=== PATIENT | female | born 1965 | race Caucasian/White ===

== ENCOUNTER → 2016-09-15 | Outpatient (CLI) | payer BC | LOC: FIMAGING 11:33 | DX: Z12.31 Encounter for screening mammogram for malignant neoplasm of breast (principal) | CPT/HCPCS: G0202 ==

== ENCOUNTER 2017-05-24 11:01 | Emergency (ER) | payer BC ==
[2017-05-24] MEDS ORDERED: NS 500 ML IV ONE (11:14)
[2017-05-24] MEDS ORDERED: LORazepam 2 MG/ML INJ IVP ONE (11:25)
--- NOTE | 2017-05-24 11:25 | CPEKG ---
Heart Rate: 108 RR Interval: 556 P-R Interval: 180 QRSD Interval: 86 QT Interval: 344 QTC Interval: 461 P Bruin: 72 QRS Bruin: 33 T Wave Bruin: 58 EKG Severity - BORDERLINE ECG - EKG Impression: SINUS TACHYCARDIA EKG Impression: PROBABLE LEFT ATRIAL ABNORMALITY Electronically Signed By: Jairo Key 24-May-2017 13:13:33
--- NOTE | 2017-05-24 11:25 | EDPHY ---
H & P Stated Complaint: ROMELIA arm numbness, Time Seen by Provider: 05/24/17 11:12 HPI/ROS: CHIEF COMPLAINT: "Feeling weird " x 3-5 days HISTORY OF PRESENT ILLNESS: 51-year-old female generally healthy arrives via private vehicle stating that for the past 3-5 days she will feel intermittent episodes of bilateral upper extremity paresthesia, left shoulder pain, anxiety, subjective sensation of hypertension. No prior history of known hypertension but at was at her ear nose and throat doctor recently and was told she had a systolic blood pressure 139 and was told to have this recheck. No antihypertensive use history. She states that when she develops these episodes she feels better if she goes outside, exercises, walks the dog. Denies: Chest pain with exertion, dyspnea with exertion, illicit drug use, cigarette use, vasculopathy or coagulopathic history. PRIMARY CARE PROVIDER:Korin Cheatham PA-C REVIEW OF SYSTEMS: A ten point review of systems was performed and is negative with the exception of the items mentioned in the HPI PAST MEDICAL & SURGICAL HISTORY: No pertinent medical or surgical history SOCIAL HISTORY:Nonsmoker. No drug use. FAMILY HISTORY: Father of OR at age 64. Mother history of atrial fibrillation diagnosed in her 80s. No family history of premature coronary artery disease or vasculopathy. PHYSICAL EXAM (Prior to examination, patient consented to physical exam, hands were washed and my usual and customary physical exam procedures followed) 1) GENERAL: Well-developed, well-nourished, alert and oriented. Appears anxious 2) HEAD: Normocephalic, atraumatic 3) HEENT: Pupils equal, round, reactive to light bilaterally. Sclera anicteric. Nasopharynx, oropharynx, clear, no lesions. Ears bilaterally with normal tympanic membranes. 4) NECK: Full range of motion, no meningeal signs. No bruit 5) LUNGS: Clear auscultation bilaterally, no wheezes, no rhonchi, no retractions. 6) HEART: Regular rate and rhythm, no murmur, no heave, no gallop. 7) ABDOMEN: No guarding, no rebound, no focal tenderness, negative McBurney's, negative Winston's, negative Rovsing's, negative peritoneal sign, 8) MUSCULOSKELETAL: Moving all extremities, no focal areas of tenderness, no obvious trauma. No peripheral edema or discoloration. No peripheral edema 9) BACK: No CVA tenderness, no midline vertebral tenderness, no fluctuance, no step-off, no obvious trauma, no visual or palpable abnormality. 10) SKIN: No rash, no petechiae. 11) Psychiatric: Patient is oriented X 3, there is no agitation. She appears anxious. DIFFERENTIAL DIAGNOSIS: In no particular order including but limited to OR, PE , psychiatric etiology, endocrinologic etiology - Personal History LMP (Females 10-55): Post Menopausal Current Tetanus/Diphtheria Vaccine: Yes Current Tetanus Diphtheria and Acellular Pertussis (TDAP): Yes - Medical/Surgical History Hx Asthma: No Hx Chronic Respiratory Disease: No Hx Diabetes: No Hx Cardiac Disease: No Hx Renal Disease: No Hx Cirrhosis: No Hx Alcoholism: No Hx HIV/AIDS: No Hx Splenectomy or Spleen Trauma: No Other PMH: vertigo-2010, L ACL repair, - Social History Smoking Status: Never smoked Constitutional: Initial Vital Signs Temperature (C) 36.6 C 05/24/17 11:07 Heart Rate 125 H 05/24/17 11:07 Respiratory Rate 20 05/24/17 11:07 Blood Pressure 179/94 H 05/24/17 11:07 O2 Sat (%) 98 05/24/17 11:07 O2 Delivery Mode Room Air Allergies/Adverse Reactions: No Known Allergies Allergy (Unverified 05/24/17 11:06) Home Medications: Medication Instructions Recorded Flaxseed Oil 05/24/17 Ibuprofen 05/24/17 LORazepam [Ativan 1 mg (RX)] 1 mg PO Q6 PRN #7 tab 05/24/17 Medical Decision Making - Diagnostics Imaging Results: Imaging Impressions Chest X-Ray 05/24/17 11:14 Impression: Normal. No pneumonia. ED Course/Re-evaluation: 11:27 a.m.: Will obtain laboratory studies including D-dimer, chest x-ray, troponin, TSH. Will administer IV saline, Ativan as she appears acutely anxious. At this time, she describes symptoms that resolved with physical activity or with walking her dog, I think that acute cardiac etiology is less than likely in this patient however will proceed with diagnostic studies and re- evaluate. 12:45 p.m.: Re-evaluation, discussed with patient her diagnostic studies including negative chest x-ray, D-dimer, troponin. Patient was given dose of IV Ativan in the emergency department. Heart rate in the 90s at this time, she is feeling improvement. I think that cardiac etiology less than likely the patient as she describes symptoms which improved with exertional activity, also noted to have negative troponin, sinus tachycardia, normal chest x-ray. I think that negative D-dimer adequately excludes pulmonary embolus in this patient with medium index of suspicion for pulmonary embolus. TSH is normal as patient. She has no co appointment with primary care provider this week (today is Thursday). I recommend she keep this appointment. Also recommend patient keep blood pressure diary. Doubt hypertensive crisis. Recommend she discuss this with primary care provider. Patient feels comfortable being discharged. Usual and customary discharge precautions instructions provided. Care of patient under supervision of secondary supervising physician Dr Jairo Key with whom I discussed case . - Data Points Laboratory Results: Laboratory Results 05/24/17 11:30 05/24/17 11:30 05/24/17 05/24/17 05/24/17 11:30 11:30 11:30 WBC RBC Hgb Hct MCV MCH MCHC RDW Plt Count MPV Neut % (Auto) Lymph % (Auto) Walsh % (Auto) Eos % (Auto) Baso % (Auto) Nucleat RBC Rel Count Absolute Neuts (auto) Absolute Lymphs (auto) Absolute Monos (auto) Absolute Eos (auto) Absolute Basos (auto) Absolute Nucleated RBC Immature Gran % Immature Gran # D-Dimer 0.32 ug/mLFEU ug/mLFEU (0.00-0.50) Sodium 143 mEq/L mEq/L (135-145) Potassium 4.4 mEq/L mEq/L (3.5-5.2) Chloride 105 mEq/L mEq/L (97-110) Carbon Dioxide 24 mEq/l mEq/l (22-31) Anion Gap 14 mEq/L mEq/L (8-16) BUN 11 mg/dL mg/dL (7-23) Creatinine 0.8 mg/dL mg/dL (0.6-1.0) Estimated GFR > 60 Glucose 108 mg/dL H mg/dL (70-100) Calcium 10.2 mg/dL mg/dL (8.5-10.4) Troponin I < 0.012 ng/mL ng/mL (0.000-0.034) TSH 4.020 uIU/mL uIU/mL (0.465-4.680) Beta HCG, Qual NEGATIVE 05/24/17 11:30 WBC 9.99 10^3/uL H 10^3/uL (3.80-9.50) RBC 4.54 10^6/uL 10^6/uL (4.18-5.33) Hgb 15.2 g/dL g/dL (12.6-16.3) Hct 42.8 % % (38.0-47.0) MCV 94.3 fL fL (81.5-99.8) MCH 33.5 pg pg (27.9-34.1) MCHC 35.5 g/dL g/dL (32.4-36.7) RDW 12.5 % % (11.5-15.2) Plt Count 226 10^3/uL 10^3/uL (150-400) MPV 11.4 fL fL (8.7-11.7) Neut % (Auto) 78.4 % H % (39.3-74.2) Lymph % (Auto) 13.8 % L % (15.0-45.0) Walsh % (Auto) 6.5 % % (4.5-13.0) Eos % (Auto) 0.6 % % (0.6-7.6) Baso % (Auto) 0.4 % % (0.3-1.7) Nucleat RBC Rel Count 0.0 % % (0.0-0.2) Absolute Neuts (auto) 7.83 10^3/uL H 10^3/uL (1.70-6.50) Absolute Lymphs (auto) 1.38 10^3/uL 10^3/uL (1.00-3.00) Absolute Monos (auto) 0.65 10^3/uL 10^3/uL (0.30-0.80) Absolute Eos (auto) 0.06 10^3/uL 10^3/uL (0.03-0.40) Absolute Basos (auto) 0.04 10^3/uL 10^3/uL (0.02-0.10) Absolute Nucleated RBC 0.00 10^3/uL 10^3/uL (0-0.01) Immature Gran % 0.3 % % (0.0-1.1) Immature Gran # 0.03 10^3/uL 10^3/uL (0.00-0.10) D-Dimer Sodium Potassium Chloride Carbon Dioxide Anion Gap BUN Creatinine Estimated GFR Glucose Calcium Troponin I TSH Beta HCG, Qual Medications Given: Discontinued Medications Sodium Chloride (Ns) 500 mls @ 1,000 mls/hr IV EDNOW ONE PRN Reason: Protocol Stop: 05/24/17 11:43 Last Admin: 05/24/17 11:35 Dose: 500 mls Lorazepam (Ativan Injection) 1 mg IVP EDNOW ONE Stop: 05/24/17 11:26 Last Admin: 05/24/17 11:35 Dose: 1 mg Departure - Departure Disposition: Home, Routine, Self-Care Clinical Impression: Hypertension Qualifiers: Hypertension type: unspecified Qualified Code(s): I10 - Essential (primary) hypertension Condition: Good Instructions: Hypertension (ED) Additional Instructions: Recommend you keep a blood pressure diary. Return to the ER if you develop new or worsening symptoms. Keep your appointment with primary care provider this week. Referrals: Korin Cheatham PA [Primary Care Provider] - 05/28/17 Prescriptions: LORazepam [Ativan 1 mg (RX)] 1 mg PO Q6 PRN #7 tab PRN Reason: Anxiety
[2017-05-24 11:40] LABS: PLATELET COUNT 226 10^3/uL (150-400)
[2017-05-24 13:04] VITALS: BP 152/92; PULSE 92; RESP 18; TEMP 98.6; O2SAT 97
== END 2017-05-24 13:05 | disposition home or self-care (01) ==
DX: I10 Essential (primary) hypertension (principal); E86.9 Volume depletion, unspecified
CPT/HCPCS: 96374; J2060

== ENCOUNTER 2017-07-14 10:17 | Emergency (ER) | payer BC ==
[2017-07-14 10:32] VITALS: TEMP 98.2
[2017-07-14] MEDS ORDERED: LIDOCAINE HCL 4% TOPICAL SOLN 50ML ONE (11:17)
[2017-07-14] MEDS ORDERED: OXYMETAZOLINE 30 ML NASAL SPRAY ONE (11:25)
[2017-07-14 11:42] VITALS: RESP 18
[2017-07-14] MEDS ORDERED: SILVER NITRATE APPLICATOR 1 APPL TP ONE (11:46)
[2017-07-14] MEDS ORDERED: LORazepam 0.5 MG TAB ONE (12:11)
[2017-07-14] MEDS ORDERED: LORazepam 0.5 MG TAB PO ONE (12:12)
--- NOTE | 2017-07-14 12:39 | EDPHY ---
H & P Time Seen by Provider: 07/14/17 10:56 HPI/ROS: CHIEF COMPLAINT: Epistaxis HISTORY OF PRESENT ILLNESS: 51-year-old female presents emergency department with epistaxis. Patient states that she has had 3 episodes of epistaxis just today. She denies any known trauma or injury. She states that she developed a nosebleed over the weekend which she was able to stop on her own. Denies a headache. Denies chest pain or difficulty breathing. She does have a history of labile blood pressures. She is scheduled see her primary care provider tomorrow. Denies dysphagia. Denies chest pain or difficulty breathing. Denies abdominal pain. REVIEW OF SYSTEMS: Constitutional: No fever, no chills. Eyes: No double or blurry vision. ENT: Epistaxis. No sore throat. Respiratory: No cough, no shortness of breath. Cardiac: No chest pain. Gastrointestinal: No abdominal pain, vomiting or diarrhea. Genitourinary: No dysuria. Musculoskeletal: No neck or back pain. Skin: No rashes. Neurological: No headache. Past Medical/Surgical History: Vertigo, orthopedic surgery Social History: and lives in [place] Smoking Status: Never smoked Physical Exam: General Appearance: Alert, no distress. Eyes: Pupils equal and round. Extraocular motions are all intact. ENT: Mouth: Mucous membranes moist. Active bleeding noted from the left nostril. Right-sided cleared. Blood noted in the posterior pharynx. Respiratory: No wheezing, rhonchi, or rales, lungs are clear to auscultation. Cardiovascular: Regular rate and rhythm. Gastrointestinal: Abdomen is soft and nontender, no masses, no rebound or guarding, bowel sounds normal. Neurological: Alert and oriented x 3, cranial nerves II through XII grossly intact Skin: Warm and dry, no rashes. Musculoskeletal: Nontender to palpate along the cervical, thoracic or lumbar spine. Neck is supple. Extremities: Full range of motion and no peripheral edema. Psychiatric: Patient is oriented X 3, there is no agitation. Constitutional: Initial Vital Signs Temperature (C) 36.8 C 07/14/17 10:31 Heart Rate 108 H 07/14/17 10:31 Respiratory Rate 20 07/14/17 10:31 Blood Pressure 147/109 H 07/14/17 10:31 O2 Sat (%) 98 07/14/17 10:31 O2 Delivery Mode Room Air O2 (L/minute) 36.8 Allergies/Adverse Reactions: No Known Allergies Allergy (Verified 07/14/17 10:30) Home Medications: Medication Instructions Recorded Flaxseed Oil 05/24/17 Ibuprofen 05/24/17 Medical Decision Making Procedures: Procedure: Epistaxis control. After verbal consent was obtained, the patient was anesthetized with 4% lidocaine solution. The anterior epistaxis was identified. The patient was treated with silver nitrate to the left anterior nasal septum, Kiesselbach's plexus. Following the procedure the patient was re-examined and the bleeding was well controlled. The patient tolerated the procedure well. The procedure was performed by myself. ED Course/Re-evaluation: 51-year-old female presents to the emergency department with epistaxis. See procedure note. The patient was observed for over 1 hr had no recurring episodes of epistaxis. She was comfortable being discharged home. She has a scheduled follow-up appointment regarding her elevated blood pressure with her primary care provider tomorrow. She was also given referral to ENT to use as needed. Differential Diagnosis: Including but not limited to epistaxis, anemia, foreign body, deviated septum - Data Points Medications Given: Discontinued Medications Lorazepam (Ativan) 0.5 mg PO EDNOW ONE Stop: 07/14/17 12:13 Last Admin: 07/14/17 12:12 Dose: 0.5 mg Departure - Departure Disposition: Home, Routine, Self-Care Clinical Impression: Epistaxis Condition: Good Instructions: Nosebleed (ED) Additional Instructions: Do not blow your nose. Keep your scheduled follow-up appoint with her primary care provider tomorrow and discuss your blood pressure. If you have any recurring problems with bloody noses, you should follow up with ENT. Continue to use humidifier in her room at night especially during the wintertime. Also think about applying nasal lubricant or Vaseline to year nose every night especially in the wintertime. Referrals: Jese Dunbar MD [Medical Doctor] - 2-3 days, call for appt. (ENT on-call)
[2017-07-14 12:40] VITALS: BP 148/99; PULSE 87; O2SAT 95
== END 2017-07-14 12:46 | disposition home or self-care (01) ==
PROC: 3E09XTZ Introduction of Destructive Agent into Nose, External Approach (ICD-10-PCS; principal; 2017-07-14)
DX: R04.0 Epistaxis (principal)

== ENCOUNTER → 2017-09-21 | Outpatient (CLI) | payer BC | LOC: FIMAGING 09:45 | PROVIDERS: ATTEND Physician Assistant | DX: Z12.31 Encounter for screening mammogram for malignant neoplasm of breast (principal) ==

== ENCOUNTER → 2018-10-01 | Outpatient (CLI) | payer BC | LOC: FIMAGING 10:05 ==